=== PATIENT | female | born 1935 | race Caucasian/White ===

== ENCOUNTER 2017-12-30 13:57 | Inpatient (IN) ==
[2017-12-30] MEDS ORDERED: methylPREDNISolone SOD SUC 125 MG/2 ML VIAL IV STA (14:35)
[2017-12-30] MEDS ORDERED: SODIUM CHLORIDE 0.9% 500 ML IV STA (14:35)
[2017-12-30] MEDS ORDERED: LEVOFLOXACIN INJ 500 MG in PREMIX 1 EACH IV STA (14:50)
[2017-12-30] MEDS ORDERED: ALBUTEROL NEB SOLN 5 MG/ML 20 ML/BOTTLE RESP TX SCH (15:00)
[2017-12-30] MEDS ORDERED: methylPREDNISolone SOD SUC 125 MG/2 ML VIAL ONE (15:19)
[2017-12-30] MEDS ORDERED: LEVOFLOXACIN INJ 100 ML IV ONE (15:19)
[2017-12-30 15:21] LABS: Basophils # 0.1 10*3/uL (0.0-0.2); Basophils % 0.4 % (0.0-0.8); Eosinophils # 0.1 10*3/uL (0.0-0.87); Eosinophils % 0.9 % (0.00-10.9); Hematocrit 38.9 VOL% (35.7-47.0); Hemoglobin 12.3 GM/DL (12.0-16.0); Immature Granulocytes % 0.3 %; Immature Granulocytes Absolute 0.04 #; Lymphocytes # 2.8 10*3/uL (1.4-4.0); Lymphocytes % 21.1 % (21.3-54.2); Mean Corpuscular HGB Conc 31.6 GM/DL (32-36); Mean Corpuscular Hemoglobin 29 PG (27-34); Mean Corpuscular Volume 90.9 FL (87-102); Mean Platelet Volume 10.5 FL (9.6-12.0); Monocytes % 7.2 % (1.7-12.7); Neutrophils # 9.3 10*3/uL (1.4-7.4); Neutrophils % 70.1 % (38.7-73.9); Platelet Count 353 T/CUMM (130-400); Red Blood Count 4.28 MC/CUMM (3.8-5.5); Red Cell Distribution Width 15.3 % (9.3-17.3); White Blood Count 13.3 T/CUMM (4-12)
[2017-12-30 15:33] LABS: PT Patient Result 10.6 SECS; Partial Thromboplastin Time 29.3 SECS (0-40)
[2017-12-30 15:41] LABS: Alanine Aminotransferase 16 U/L (13-56); Alkaline Phosphatase 136 U/L (45-117); Aspartate Amino Transferase 13 U/L (0-37); Blood Urea Nitrogen 14 MG/DL (7-18); Calcium 9.1 MG/DL (8.5-10.1); Glucose 83 MG/DL (74-106); Lymphocytes 25 % (20-55); Osmolality,Calculated 278.4 MOS/KG (273-304); Platelet Estimate Adequate; Potassium 4.6 MMOL/L (3.5-5.1); Segmented Neutrophils 70 % (50-85); Sodium 140 MMOL/L (136-145); Total Cells Counted 100; Total Protein 7.2 G/DL (6.4-8.3); Troponin I Only < 0.015 NG/ML (0.00-0.045)
[2017-12-30 15:42] LABS: Burr Cells Slight; Giant Platelets Few; Hypochromasia 1+; Ovalocytes Slight
[2017-12-30] MEDS ORDERED: ACETAMINOPHEN 325 MG TABLET PO PRN (16:09)
[2017-12-30] MEDS ORDERED: LORazepam 1 MG TABLET PO PRN (16:14)
[2017-12-30] MEDS ORDERED: FUROSEMIDE 20 MG TABLET PO PRN (16:14)
[2017-12-30 17:13] LABS: Apearance,Urine CLEAR (Clear); Bilirubin,Urine Negative (Negative); Blood, Urine Negative (Negative); Glucose,Urine (UA) Negative (Negative); Ketones,Urine 5 mg/dL (Negative); Mucus,Urine Occasional /LPF (Occasional); Nitrite,Urine Negative (Negative); Protein,Urine 30 MG/DL; RBC,Urine 1 /HPF (0-4); Squamous Epithelial Cell,Urine Occasional /HPF (0-10); Urine Color Yellow (Yellow); Urine Specific Gravity 1.014 (1.001-1.035); Urine Urobilinogen < 2.0 EU/DL (0.2-1.0); WBC,Urine <1 /HPF (0-6)
[2017-12-30] MEDS ORDERED: methylPREDNISolone SOD SUC 125 MG/2 ML VIAL IV SCH (18:00)
[2017-12-30] MEDS ORDERED: guaiFENesin/CODEINE 5 ML LIQUID PO PRN (20:00)
[2017-12-30] MEDS: IPRATROPIUM 500 MCG/2.5 ML NEB RESP TX SCH ×2 (20:14→23:27)
[2017-12-30] MEDS: methylPREDNISolone SOD SUC 125 MG/2 ML VIAL IV SCH (20:47)
[2017-12-30] MEDS: MEROPENEM 1,000 MG in SODIUM CHLORIDE 0.9% 100 ML IV SCH (20:50)
[2017-12-30] MEDS: FLUTICASONE/SALMETEROL 250-50 DISKUS 14 DOSE INH SCH (20:54)
[2017-12-30] MEDS: BRIMONIDINE/TIMOLOL OPH SOLN 5 ML BOTTLE BOTH EYES SCH (20:56)
[2017-12-30] MEDS: ATORVASTATIN 20 MG TABLET PO SCH (20:56)
[2017-12-30] MEDS: CARVEDILOL 3.125 MG TABLET PO SCH (20:56)
[2017-12-31] MEDS: IPRATROPIUM 500 MCG/2.5 ML NEB RESP TX SCH ×2 (03:32→07:25)
[2017-12-31] MEDS: methylPREDNISolone SOD SUC 125 MG/2 ML VIAL IV SCH ×3 (04:46→15:25)
[2017-12-31] MEDS: ASPIRIN EC 81 MG TABLET PO SCH (08:50)
[2017-12-31] MEDS: FLUTICASONE/SALMETEROL 250-50 DISKUS 14 DOSE INH SCH ×2 (08:50→22:40)
[2017-12-31] MEDS: CARVEDILOL 3.125 MG TABLET PO SCH ×2 (08:50→22:39)
[2017-12-31] MEDS: AMIODARONE 200 MG TABLET PO SCH (08:50)
[2017-12-31] MEDS: PANTOPRAZOLE 40 MG TABLET PO SCH (08:50)
[2017-12-31] MEDS: BRIMONIDINE/TIMOLOL OPH SOLN 5 ML BOTTLE BOTH EYES SCH ×2 (08:51→22:38)
[2017-12-31] MEDS: MEROPENEM 1,000 MG in SODIUM CHLORIDE 0.9% 100 ML IV SCH ×2 (08:59→21:55)
[2017-12-31] MEDS: FUROSEMIDE 40 MG/4 ML VIAL IV SCH ×2 (08:59→15:25)
[2017-12-31 09:19] LABS: Basophils % 0.1 % (0.0-0.8); Hematocrit 37.9 VOL% (35.7-47.0); Hemoglobin 12.1 GM/DL (12.0-16.0); Immature Granulocytes % 0.6 %; Immature Granulocytes Absolute 0.08 #; Lymphocytes # 1.4 10*3/uL (1.4-4.0); Lymphocytes % 10.8 % (21.3-54.2); Mean Corpuscular HGB Conc 31.9 GM/DL (32-36); Mean Corpuscular Hemoglobin 29 PG (27-34); Mean Corpuscular Volume 89.4 FL (87-102); Mean Platelet Volume 10.4 FL (9.6-12.0); Monocytes # 0.1 10*3/uL (0.11-0.8); Monocytes % 0.4 % (1.7-12.7); Neutrophils # 11.1 10*3/uL (1.4-7.4); Neutrophils % 88.1 % (38.7-73.9); Platelet Count 373 T/CUMM (130-400); Red Blood Count 4.24 MC/CUMM (3.8-5.5); Red Cell Distribution Width 15.3 % (9.3-17.3); White Blood Count 12.6 T/CUMM (4-12)
[2017-12-31 09:28] LABS: Calcium 9.1 MG/DL (8.5-10.1); Osmolality,Calculated 288.1 MOS/KG (273-304); Potassium 4.7 MMOL/L (3.5-5.1)
[2017-12-31] MEDS ORDERED: ALBUTEROL/IPRATROPIUM 3 ML NEB RESP TX PRN (09:30)
[2017-12-31 09:36] LABS: Band Neutrophils 1 % (0-10); Giant Platelets Few; Hypochromasia 1+; Lymphocytes 17 % (20-55); Microcytosis Slight; Platelet Estimate Adequate; Segmented Neutrophils 81 % (50-85); Total Cells Counted 100
[2017-12-31] MEDS: MONTELUKAST 10 MG TABLET PO SCH (10:48)
[2017-12-31] MEDS: DICLOFENAC 1.3% PATCH 5/PACK TRANSDERM SCH ×2 (10:48→22:47)
[2017-12-31] MEDS: BENZONATATE 100 MG CAPSULE PO SCH ×3 (10:50→22:39)
[2017-12-31] MEDS: ALBUTEROL/IPRATROPIUM 3 ML NEB RESP TX SCH ×3 (10:56→19:52)
[2017-12-31] MEDS: LEVOFLOXACIN INJ 750 MG in PREMIX 1 EACH IV SCH (15:26)
[2017-12-31] MEDS: methylPREDNISolone SOD SUC 40 MG/1 ML VIAL IV SCH (22:34)
[2017-12-31] MEDS: ATORVASTATIN 20 MG TABLET PO SCH (22:39)
[2018-01-01 05:49] LABS: Basophils % 0.1 % (0.0-0.8); Hematocrit 34.6 VOL% (35.7-47.0); Hemoglobin 11.5 GM/DL (12.0-16.0); Immature Granulocytes % 1.2 %; Immature Granulocytes Absolute 0.26 #; Lymphocytes # 1.3 10*3/uL (1.4-4.0); Lymphocytes % 5.8 % (21.3-54.2); Mean Corpuscular HGB Conc 33.2 GM/DL (32-36); Mean Corpuscular Hemoglobin 29 PG (27-34); Mean Corpuscular Volume 87.4 FL (87-102); Mean Platelet Volume 10.5 FL (9.6-12.0); Monocytes # 0.3 10*3/uL (0.11-0.8); Monocytes % 1.5 % (1.7-12.7); Neutrophils # 20.4 10*3/uL (1.4-7.4); Neutrophils % 91.4 % (38.7-73.9); Platelet Count 379 T/CUMM (130-400); Red Blood Count 3.96 MC/CUMM (3.8-5.5); Red Cell Distribution Width 15.3 % (9.3-17.3); White Blood Count 22.3 T/CUMM (4-12)
[2018-01-01 06:24] LABS: Calcium 8.8 MG/DL (8.5-10.1); Osmolality,Calculated 288.1 MOS/KG (273-304); Potassium 4.3 MMOL/L (3.5-5.1)
[2018-01-01 07:13] LABS: Acanthocytes Few; Band Neutrophils 2 % (0-10); Hypochromasia 1+; Lymphocytes 5 % (20-55); Microcytosis 1+; Total Cells Counted 100
[2018-01-01 07:14] LABS: Giant Platelets Few; Ovalocytes Slight; Platelet Estimate Normal; Segmented Neutrophils 92 % (50-85)
[2018-01-01 07:28] LABS: Free T4 (Free Thyroxine) 1.42 NG/DL (0.76-1.46); Thyroid Stimulating Hormone 0.284 uIU/ml (0.358-3.74)
[2018-01-01] MEDS: ALBUTEROL/IPRATROPIUM 3 ML NEB RESP TX SCH ×4 (08:10→19:24)
[2018-01-01] MEDS ORDERED: LISINOPRIL 2.5 MG TABLET PO SCH (09:00)
[2018-01-01] MEDS: FLUTICASONE/SALMETEROL 250-50 DISKUS 14 DOSE INH SCH ×2 (09:08→21:53)
[2018-01-01] MEDS: PANTOPRAZOLE 40 MG TABLET PO SCH (09:09)
[2018-01-01] MEDS: AMIODARONE 200 MG TABLET PO SCH (09:09)
[2018-01-01] MEDS: CARVEDILOL 3.125 MG TABLET PO SCH (09:09)
[2018-01-01] MEDS: methylPREDNISolone SOD SUC 40 MG/1 ML VIAL IV SCH ×2 (09:09→21:51)
[2018-01-01] MEDS: BENZONATATE 100 MG CAPSULE PO SCH ×3 (09:09→21:53)
[2018-01-01] MEDS: ASPIRIN EC 81 MG TABLET PO SCH (09:09)
[2018-01-01] MEDS: BRIMONIDINE/TIMOLOL OPH SOLN 5 ML BOTTLE BOTH EYES SCH ×2 (09:10→21:54)
[2018-01-01] MEDS: FUROSEMIDE 40 MG/4 ML VIAL IV SCH (09:10)
[2018-01-01] MEDS: MONTELUKAST 10 MG TABLET PO SCH (09:10)
[2018-01-01] MEDS: DICLOFENAC 1.3% PATCH 5/PACK TRANSDERM SCH ×2 (09:10→21:58)
[2018-01-01] MEDS: MEROPENEM 1,000 MG in SODIUM CHLORIDE 0.9% 100 ML IV SCH ×2 (09:22→21:59)
[2018-01-01] MEDS: LEVOFLOXACIN INJ 750 MG in PREMIX 1 EACH IV SCH (10:40)
[2018-01-01] MEDS: SODIUM CHLORIDE 0.9% 1,000 ML IV SCH (13:06)
[2018-01-01] MEDS: ATORVASTATIN 20 MG TABLET PO SCH (21:53)
[2018-01-02] MEDS: SODIUM CHLORIDE 0.9% 1,000 ML IV SCH ×2 (00:11→10:08)
[2018-01-02 02:40] LABS: Basophils % 0.1 % (0.0-0.8); Hematocrit 31.8 VOL% (35.7-47.0); Hemoglobin 10.3 GM/DL (12.0-16.0); Immature Granulocytes % 1.5 %; Immature Granulocytes Absolute 0.28 #; Mean Corpuscular HGB Conc 32.4 GM/DL (32-36); Mean Corpuscular Hemoglobin 29 PG (27-34); Mean Corpuscular Volume 88.3 FL (87-102); Mean Platelet Volume 10.7 FL (9.6-12.0); Monocytes # 0.4 10*3/uL (0.11-0.8); Monocytes % 1.9 % (1.7-12.7); Neutrophils # 17.2 10*3/uL (1.4-7.4); Neutrophils % 91.5 % (38.7-73.9); Platelet Count 366 T/CUMM (130-400); Red Cell Distribution Width 15.5 % (9.3-17.3); White Blood Count 18.8 T/CUMM (4-12)
[2018-01-02 03:22] LABS: Calcium 8.4 MG/DL (8.5-10.1); Osmolality,Calculated 293.8 MOS/KG (273-304); Potassium 3.8 MMOL/L (3.5-5.1)
[2018-01-02 03:30] LABS: Band Neutrophils 1 % (0-10); Lymphocytes 2 % (20-55); Platelet Estimate Normal; Segmented Neutrophils 97 % (50-85); Total Cells Counted 100
[2018-01-02 06:24] LABS: Risk Ratio 3.11; VLDL CHOLESTEROL 16.6 MG/DL
[2018-01-02] MEDS: ALBUTEROL/IPRATROPIUM 3 ML NEB RESP TX SCH ×4 (07:32→18:59)
[2018-01-02] MEDS ORDERED: LISINOPRIL 2.5 MG TABLET PO SCH (09:00)
[2018-01-02] MEDS: BENZONATATE 100 MG CAPSULE PO SCH ×3 (10:01→20:25)
[2018-01-02] MEDS: MEROPENEM 1,000 MG in SODIUM CHLORIDE 0.9% 100 ML IV SCH ×2 (10:01→20:34)
[2018-01-02] MEDS: MONTELUKAST 10 MG TABLET PO SCH (10:02)
[2018-01-02] MEDS: AMIODARONE 200 MG TABLET PO SCH (10:02)
[2018-01-02] MEDS: ASPIRIN EC 81 MG TABLET PO SCH (10:02)
[2018-01-02] MEDS: PANTOPRAZOLE 40 MG TABLET PO SCH (10:03)
[2018-01-02] MEDS: BRIMONIDINE/TIMOLOL OPH SOLN 5 ML BOTTLE BOTH EYES SCH ×2 (10:03→20:28)
[2018-01-02] MEDS: FLUTICASONE/SALMETEROL 250-50 DISKUS 14 DOSE INH SCH ×2 (10:08→20:27)
[2018-01-02] MEDS: DICLOFENAC 1.3% PATCH 5/PACK TRANSDERM SCH ×2 (10:08→20:29)
[2018-01-02] MEDS: methylPREDNISolone SOD SUC 40 MG/1 ML VIAL IV SCH ×2 (10:09→21:07)
[2018-01-02] MEDS: LEVOFLOXACIN INJ 750 MG in PREMIX 1 EACH IV SCH (11:51)
[2018-01-02] MEDS ORDERED: CARVEDILOL 3.125 MG TABLET PO SCH (17:00)
[2018-01-02] MEDS: ATORVASTATIN 20 MG TABLET PO SCH (20:26)
[2018-01-03 04:07] LABS: Basophils % 0.1 % (0.0-0.8); Hematocrit 33.8 VOL% (35.7-47.0); Hemoglobin 10.9 GM/DL (12.0-16.0); Immature Granulocytes % 1.4 %; Immature Granulocytes Absolute 0.23 #; Lymphocytes % 6.4 % (21.3-54.2); Mean Corpuscular HGB Conc 32.2 GM/DL (32-36); Mean Corpuscular Hemoglobin 28 PG (27-34); Mean Corpuscular Volume 87.8 FL (87-102); Mean Platelet Volume 10.1 FL (9.6-12.0); Monocytes # 0.4 10*3/uL (0.11-0.8); Monocytes % 2.2 % (1.7-12.7); Neutrophils # 14.5 10*3/uL (1.4-7.4); Neutrophils % 89.9 % (38.7-73.9); Platelet Count 406 T/CUMM (130-400); Red Blood Count 3.85 MC/CUMM (3.8-5.5); Red Cell Distribution Width 15.8 % (9.3-17.3); White Blood Count 16.1 T/CUMM (4-12)
[2018-01-03 04:31] LABS: Calcium 8.6 MG/DL (8.5-10.1); Osmolality,Calculated 294.8 MOS/KG (273-304); Potassium 4.1 MMOL/L (3.5-5.1)
[2018-01-03] MEDS: ALBUTEROL/IPRATROPIUM 3 ML NEB RESP TX SCH ×4 (08:00→19:21)
[2018-01-03] MEDS: MEROPENEM 1,000 MG in SODIUM CHLORIDE 0.9% 100 ML IV SCH ×2 (09:59→20:58)
[2018-01-03] MEDS: FLUTICASONE/SALMETEROL 250-50 DISKUS 14 DOSE INH SCH ×2 (10:01→20:47)
[2018-01-03] MEDS: ASPIRIN EC 81 MG TABLET PO SCH (10:02)
[2018-01-03] MEDS: AMIODARONE 200 MG TABLET PO SCH (10:02)
[2018-01-03] MEDS: MONTELUKAST 10 MG TABLET PO SCH (10:02)
[2018-01-03] MEDS: PANTOPRAZOLE 40 MG TABLET PO SCH (10:02)
[2018-01-03] MEDS: methylPREDNISolone SOD SUC 40 MG/1 ML VIAL IV SCH ×2 (10:02→20:51)
[2018-01-03] MEDS: BENZONATATE 100 MG CAPSULE PO SCH ×3 (10:02→20:49)
[2018-01-03] MEDS: BRIMONIDINE/TIMOLOL OPH SOLN 5 ML BOTTLE BOTH EYES SCH ×2 (10:03→20:47)
[2018-01-03] MEDS: DICLOFENAC 1.3% PATCH 5/PACK TRANSDERM SCH ×2 (10:13→20:48)
[2018-01-03] MEDS: LEVOFLOXACIN INJ 750 MG in PREMIX 1 EACH IV SCH (10:44)
[2018-01-03] MEDS: ATORVASTATIN 20 MG TABLET PO SCH (20:49)
[2018-01-04] MEDS: ALBUTEROL/IPRATROPIUM 3 ML NEB RESP TX SCH (07:22)
[2018-01-04 08:19] VITALS: BP 153/67
[2018-01-04] MEDS: FLUTICASONE/SALMETEROL 250-50 DISKUS 14 DOSE INH SCH (09:15)
[2018-01-04] MEDS: DICLOFENAC 1.3% PATCH 5/PACK TRANSDERM SCH (09:16)
[2018-01-04] MEDS: LEVOFLOXACIN INJ 750 MG in PREMIX 1 EACH IV SCH (09:17)
[2018-01-04] MEDS: BRIMONIDINE/TIMOLOL OPH SOLN 5 ML BOTTLE BOTH EYES SCH (09:19)
[2018-01-04] MEDS: methylPREDNISolone SOD SUC 40 MG/1 ML VIAL IV SCH (09:20)
[2018-01-04] MEDS: ASPIRIN EC 81 MG TABLET PO SCH (09:21)
[2018-01-04] MEDS: BENZONATATE 100 MG CAPSULE PO SCH (09:21)
[2018-01-04] MEDS: AMIODARONE 200 MG TABLET PO SCH (09:21)
[2018-01-04] MEDS: MEROPENEM 1,000 MG in SODIUM CHLORIDE 0.9% 100 ML IV SCH (09:22)
[2018-01-04] MEDS: MONTELUKAST 10 MG TABLET PO SCH (09:22)
[2018-01-04] MEDS: PANTOPRAZOLE 40 MG TABLET PO SCH (09:22)
== END 2018-01-04 11:35 | disposition hospice, home (50) | DRG 193 ==
LOC: N.ED 13:57 → N.EDINP 15:45 → N.2E 19:36
PROVIDERS: ADMIT Internal Medicine; ATTEND Internal Medicine

== ENCOUNTER 2018-12-30 16:25 | Inpatient (IN) ==
[2018-12-30] MEDS ORDERED: ASPIRIN 325 MG TABLET PO STA (16:45)
[2018-12-30] MEDS ORDERED: ONDANSETRON 4 MG/2 ML VIAL IV STA (16:45)
[2018-12-30] MEDS ORDERED: methylPREDNISolone SOD SUC 125 MG/2 ML VIAL IV STA (16:45)
[2018-12-30 17:00] LABS: Basophils % 0.3 % (0.0-0.8); Eosinophils % 0.3 % (0.00-10.9); Hematocrit 29.1 VOL% (35.7-47.0); Immature Granulocytes % 0.8 %; Immature Granulocytes Absolute 0.07 #; Lymphocytes # 1.1 10*3/uL (1.4-4.0); Lymphocytes % 12.6 % (21.3-54.2); Mean Corpuscular HGB Conc 27.1 GM/DL (32-36); Mean Corpuscular Volume 79.7 FL (87-102); Mean Platelet Volume 10.6 FL (9.6-12.0); Monocytes % 4.9 % (1.7-12.7); NRBC # 0.02 10*3/uL; Neutrophils % 81.1 % (38.7-73.9); Platelet Count 174 T/CUMM (130-400); Red Blood Count 3.65 MC/CUMM (3.8-5.5); Red Cell Distribution Width 18.6 % (9.3-17.3); White Blood Count 8.8 T/CUMM (4-12)
[2018-12-30] MEDS ORDERED: ALBUTEROL 2.5 MG/3 ML NEB RESP TX SCH (17:00)
[2018-12-30 17:02] LABS: Hemoglobin 7.9 GM/DL (12.0-16.0)
[2018-12-30 17:21] LABS: Albumin 2.8 G/DL (3.4-5.0); Bilirubin,Total 0.6 MG/DL (0.2-1.0); Calcium 8.6 MG/DL (8.5-10.1); Osmolality,Calculated 281.5 MOS/KG (273-304); Total Protein 7.3 G/DL (6.4-8.3)
[2018-12-30] MEDS ORDERED: FUROSEMIDE 20 MG/2 ML VIAL IV STA (17:52)
[2018-12-30 17:56] LABS: ABG Base Excess -0.4 MMOL/L (-2.5-2.5); ABG Oxygen Saturation 88.9 % (95-100); ABG PCO2 37.7 MM HG (35-48); ABG PH 7.411 (7.35-7.45); ABG PO2 59.7 MM HG (80-95); ABG TCO2 22.4 MMOL/L (23-27); Pt O2 Delivery Device Other
[2018-12-30] MEDS: PHENYLEPHRINE DRIP 40 MG/250 ML PREMIX IV PRN (18:16)
[2018-12-30 18:23] LABS: Apearance,Urine CLEAR (Clear); Bacteria,Urine Occasional /HPF (Few); Bilirubin,Urine Negative (Negative); Blood, Urine Negative (Negative); Glucose,Urine (UA) Negative (Negative); Hyaline Casts,Urine 9 /LPF (0-3); Ketones,Urine Negative (Negative); Mucus,Urine Occasional /LPF (Occasional); Nitrite,Urine Negative (Negative); Protein,Urine 30 MG/DL; RBC,Urine 5 /HPF (0-4); Squamous Epithelial Cell,Urine Occasional /HPF (0-10); Urine Color Yellow (Yellow); Urine Specific Gravity 1.011 (1.001-1.035); Urine Urobilinogen < 2.0 EU/DL (0.2-1.0); WBC,Urine 2 /HPF (0-6)
[2018-12-30 18:30] LABS: INR 1.1; PT Patient Result 12.2 SECS
[2018-12-30] MEDS ORDERED: SODIUM CHLORIDE 0.9% 1,900 ML IV ONE (18:59)
[2018-12-30] MEDS ORDERED: PIPERACILLIN/TAZOBACTAM 2,250 MG in SODIUM CHLORIDE 0.9% 100 ML IV SCH (19:00)
[2018-12-30] MEDS ORDERED: PIPERACILLIN/TAZOBACTAM 3,375 MG in SODIUM CHLORIDE 0.9% 100 ML IV SCH (20:00)
[2018-12-30] MEDS ORDERED: PNEUMOCOCCAL VACCINE (13 VALENT) 0.5 ML SYRINGE IM ONE (20:49)
[2018-12-30] MEDS: FUROSEMIDE 20 MG/2 ML VIAL IV SCH (21:32)
[2018-12-30] MEDS: PANTOPRAZOLE 40 MG VIAL IV SCH (21:32)
[2018-12-30] MEDS: ATORVASTATIN 20 MG TABLET PO SCH (21:32)
[2018-12-30] MEDS: ENOXAPARIN 30 MG/0.3 ML SYRINGE SUBCUT SCH (21:34)
[2018-12-30] MEDS: CLINDAMYCIN INJ 300 MG in PREMIX 1 EACH IV SCH (22:47)
[2018-12-30] MEDS: PIPERACILLIN/TAZOBACTAM 3,375 MG in SODIUM CHLORIDE 0.9% 100 ML IV SCH (23:17)
[2018-12-31 02:47] LABS: Hematocrit 27.8 VOL% (35.7-47.0); Hemoglobin 7.7 GM/DL (12.0-16.0); Immature Granulocytes % 0.6 %; Immature Granulocytes Absolute 0.05 #; Lymphocytes # 0.7 10*3/uL (1.4-4.0); Lymphocytes % 8.1 % (21.3-54.2); Mean Corpuscular HGB Conc 27.7 GM/DL (32-36); Mean Corpuscular Volume 77.4 FL (87-102); Mean Platelet Volume 10.5 FL (9.6-12.0); Monocytes % 0.9 % (1.7-12.7); Neutrophils % 90.4 % (38.7-73.9); Platelet Count 414 T/CUMM (130-400); Red Blood Count 3.59 MC/CUMM (3.8-5.5); Red Cell Distribution Width 18.6 % (9.3-17.3); White Blood Count 8.7 T/CUMM (4-12)
[2018-12-31 03:13] LABS: Calcium 7.8 MG/DL (8.5-10.1); Osmolality,Calculated 288.1 MOS/KG (273-304)
[2018-12-31 03:22] LABS: Albumin 2.7 G/DL (3.4-5.0); Bilirubin,Total 0.7 MG/DL (0.2-1.0); Calcium 7.9 MG/DL (8.5-10.1); Osmolality,Calculated 287.1 MOS/KG (273-304); Total Protein 6.9 G/DL (6.4-8.3)
[2018-12-31] MEDS: CLINDAMYCIN INJ 300 MG in PREMIX 1 EACH IV SCH ×3 (04:33→21:22)
[2018-12-31] MEDS: ONDANSETRON 4 MG/2 ML VIAL IV PRN (05:39)
[2018-12-31] MEDS: PHENYLEPHRINE DRIP 40 MG/250 ML PREMIX IV PRN (07:53)
[2018-12-31] MEDS: PIPERACILLIN/TAZOBACTAM 3,375 MG in SODIUM CHLORIDE 0.9% 100 ML IV SCH ×2 (08:50→21:58)
[2018-12-31] MEDS: FUROSEMIDE 20 MG/2 ML VIAL IV SCH ×2 (08:51→21:09)
[2018-12-31] MEDS: AMIODARONE 200 MG TABLET PO SCH (09:00)
[2018-12-31] MEDS: ALBUTEROL 2.5 MG/3 ML NEB RESP TX PRN (09:01)
[2018-12-31] MEDS: PANTOPRAZOLE 40 MG VIAL IV SCH (18:54)
[2018-12-31] MEDS: ATORVASTATIN 20 MG TABLET PO SCH (21:09)
[2018-12-31] MEDS: ENOXAPARIN 30 MG/0.3 ML SYRINGE SUBCUT SCH (21:24)
[2019-01-01] MEDS ORDERED: ZALEPLON 5 MG CAPSULE PO ONE (00:01)
[2019-01-01] MEDS: CLINDAMYCIN INJ 300 MG in PREMIX 1 EACH IV SCH ×3 (05:09→22:34)
[2019-01-01] MEDS ORDERED: MORPHINE 4 MG/1 ML VIAL IV PRN (06:10)
[2019-01-01 06:32] LABS: Basophils % 0.1 % (0.0-0.8); Hematocrit 24.9 VOL% (35.7-47.0); Hemoglobin 7.2 GM/DL (12.0-16.0); Immature Granulocytes % 0.4 %; Immature Granulocytes Absolute 0.07 #; Lymphocytes # 1.9 10*3/uL (1.4-4.0); Lymphocytes % 11.5 % (21.3-54.2); Mean Corpuscular HGB Conc 28.9 GM/DL (32-36); Mean Corpuscular Volume 74.8 FL (87-102); Mean Platelet Volume 11.4 FL (9.6-12.0); Monocytes % 8.6 % (1.7-12.7); NRBC # 0.06 10*3/uL; Neutrophils % 79.4 % (38.7-73.9); Platelet Count 441 T/CUMM (130-400); Red Blood Count 3.33 MC/CUMM (3.8-5.5); Red Cell Distribution Width 18.3 % (9.3-17.3); White Blood Count 16.7 T/CUMM (4-12)
[2019-01-01 06:33] LABS: Calcium 8.3 MG/DL (8.5-10.1); Osmolality,Calculated 285.3 MOS/KG (273-304)
[2019-01-01 07:45] LABS: Hypochromasia 2+; Microcytosis 2+; Ovalocytes Few; Polychromasia Slight; Target Cells Few
[2019-01-01 07:46] LABS: Burr Cells Slight; Elliptocytes Few; Platelet Estimate Increased; Tear Drop Cells Few
[2019-01-01] MEDS ORDERED: POTASSIUM CHLORIDE 20 MEQ TABLET PO ONE (08:52)
[2019-01-01] MEDS ORDERED: PNEUMOCOCCAL VACCINE (13 VALENT) 0.5 ML SYRINGE IM ONE (09:00)
[2019-01-01] MEDS: PIPERACILLIN/TAZOBACTAM 3,375 MG in SODIUM CHLORIDE 0.9% 100 ML IV SCH ×2 (10:29→20:51)
[2019-01-01] MEDS: AMIODARONE 200 MG TABLET PO SCH (10:29)
[2019-01-01] MEDS: FUROSEMIDE 20 MG/2 ML VIAL IV SCH ×3 (10:29→20:52)
[2019-01-01] MEDS: ISOSORBIDE MONONITRATE 30 MG TABLET PO SCH (15:32)
[2019-01-01] MEDS: metOLazone 5 MG TABLET PO SCH (15:32)
[2019-01-01] MEDS: ASPIRIN EC 81 MG TABLET PO SCH (15:32)
[2019-01-01] MEDS: ALBUMIN 25% 25 GM in PREMIX 1 EACH IV SCH (19:57)
[2019-01-01] MEDS: ENOXAPARIN 30 MG/0.3 ML SYRINGE SUBCUT SCH (20:51)
[2019-01-01] MEDS: BRIMONIDINE/TIMOLOL OPH SOLN 5 ML BOTTLE BOTH EYES SCH (20:52)
[2019-01-01] MEDS: ATORVASTATIN 20 MG TABLET PO SCH (20:52)
[2019-01-01] MEDS: DOCUSATE SODIUM 100 MG CAPSULE PO SCH (20:52)
[2019-01-01] MEDS: LORazepam 1 MG TABLET PO PRN (22:04)
[2019-01-01] MEDS ORDERED: SODIUM CHLORIDE 0.9% 250 ML IV SCH (23:00)
[2019-01-01] MEDS ORDERED: PHENYLEPHRINE DRIP 40 MG/250 ML PREMIX IV ONE (23:18)
[2019-01-01] MEDS: PHENYLEPHRINE DRIP 40 MG/250 ML PREMIX IV PRN (23:24)
[2019-01-01] MEDS: ONDANSETRON 4 MG/2 ML VIAL IV PRN (23:47)
[2019-01-02] MEDS ORDERED: SODIUM CHLORIDE 0.9% 250 ML IV SCH (01:00)
[2019-01-02 01:42] LABS: Basophils % 0.3 % (0.0-0.8); Eosinophils % 0.2 % (0.00-10.9); Hematocrit 23.7 VOL% (35.7-47.0); Hemoglobin 6.6 GM/DL (12.0-16.0); Immature Granulocytes % 0.4 %; Immature Granulocytes Absolute 0.05 #; Lymphocytes # 1.7 10*3/uL (1.4-4.0); Lymphocytes % 14.8 % (21.3-54.2); Mean Corpuscular HGB Conc 27.8 GM/DL (32-36); Mean Corpuscular Volume 77.7 FL (87-102); Mean Platelet Volume 10.8 FL (9.6-12.0); Monocytes % 9.6 % (1.7-12.7); NRBC # 0.06 10*3/uL; Neutrophils % 74.7 % (38.7-73.9); Platelet Count 416 T/CUMM (130-400); Red Blood Count 3.05 MC/CUMM (3.8-5.5); Red Cell Distribution Width 18.4 % (9.3-17.3); White Blood Count 11.7 T/CUMM (4-12)
[2019-01-02 01:44] LABS: Calcium 7.4 MG/DL (8.5-10.1); Osmolality,Calculated 290.1 MOS/KG (273-304)
[2019-01-02] MEDS: CLINDAMYCIN INJ 300 MG in PREMIX 1 EACH IV SCH ×3 (05:00→21:00)
[2019-01-02 05:12] LABS: Basophils % 0.2 % (0.0-0.8); Eosinophils % 0.3 % (0.00-10.9); Hemoglobin 6.7 GM/DL (12.0-16.0); Immature Granulocytes % 0.3 %; Immature Granulocytes Absolute 0.04 #; Lymphocytes % 16.2 % (21.3-54.2); Mean Corpuscular HGB Conc 29.1 GM/DL (32-36); Mean Corpuscular Volume 74.4 FL (87-102); Mean Platelet Volume 10.8 FL (9.6-12.0); Monocytes % 13.5 % (1.7-12.7); NRBC # 0.09 10*3/uL; Neutrophils % 69.5 % (38.7-73.9); Platelet Count 469 T/CUMM (130-400); Red Blood Count 3.09 MC/CUMM (3.8-5.5); Red Cell Distribution Width 18.2 % (9.3-17.3); White Blood Count 12.2 T/CUMM (4-12)
[2019-01-02 05:36] LABS: Calcium 7.8 MG/DL (8.5-10.1)
[2019-01-02 05:41] LABS: Risk Ratio 2.41; VLDL CHOLESTEROL 17.2 MG/DL
[2019-01-02] MEDS: ALBUMIN 25% 25 GM in PREMIX 1 EACH IV SCH ×2 (08:25→19:31)
[2019-01-02] MEDS: PHENYLEPHRINE DRIP 40 MG/250 ML PREMIX IV PRN (08:53)
[2019-01-02] MEDS: DOCUSATE SODIUM 100 MG CAPSULE PO SCH ×2 (09:45→20:33)
[2019-01-02] MEDS: ASPIRIN EC 81 MG TABLET PO SCH (09:45)
[2019-01-02] MEDS: ISOSORBIDE MONONITRATE 30 MG TABLET PO SCH (09:46)
[2019-01-02] MEDS: BRIMONIDINE/TIMOLOL OPH SOLN 5 ML BOTTLE BOTH EYES SCH ×2 (09:46→21:47)
[2019-01-02] MEDS: AMIODARONE 200 MG TABLET PO SCH (09:46)
[2019-01-02] MEDS: metOLazone 5 MG TABLET PO SCH (09:47)
[2019-01-02] MEDS: POTASSIUM CHLORIDE 20 MEQ TABLET PO SCH (09:47)
[2019-01-02] MEDS: PANTOPRAZOLE 40 MG TABLET PO SCH (09:47)
[2019-01-02] MEDS: SERTRALINE 25 MG TABLET PO SCH (09:47)
[2019-01-02] MEDS: FUROSEMIDE 20 MG/2 ML VIAL IV SCH ×2 (09:47→20:31)
[2019-01-02] MEDS: PIPERACILLIN/TAZOBACTAM 3,375 MG in SODIUM CHLORIDE 0.9% 100 ML IV SCH ×2 (09:48→20:32)
[2019-01-02] MEDS ORDERED: SODIUM CHLORIDE 0.9% 1,000 ML IV PRN (10:46)
[2019-01-02] MEDS: ATORVASTATIN 20 MG TABLET PO SCH (20:32)
[2019-01-02] MEDS: ENOXAPARIN 30 MG/0.3 ML SYRINGE SUBCUT SCH (20:32)
[2019-01-02] MEDS: SENNA 8.6 MG TABLET PO SCH (20:32)
[2019-01-03] MEDS: PHENYLEPHRINE DRIP 40 MG/250 ML PREMIX IV PRN ×2 (04:26→23:55)
[2019-01-03] MEDS: CLINDAMYCIN INJ 300 MG in PREMIX 1 EACH IV SCH ×3 (05:00→21:28)
[2019-01-03 05:40] LABS: Basophils % 0.2 % (0.0-0.8); Eosinophils # 0.1 10*3/uL (0.0-0.87); Eosinophils % 1.1 % (0.00-10.9); Hematocrit 34.7 VOL% (35.7-47.0); Hemoglobin 10.7 GM/DL (12.0-16.0); Immature Granulocytes % 0.4 %; Immature Granulocytes Absolute 0.05 #; Lymphocytes # 1.5 10*3/uL (1.4-4.0); Lymphocytes % 12.3 % (21.3-54.2); Mean Corpuscular HGB Conc 30.8 GM/DL (32-36); Mean Corpuscular Volume 77.5 FL (87-102); Mean Platelet Volume 10.5 FL (9.6-12.0); Monocytes % 10.8 % (1.7-12.7); NRBC # 0.14 10*3/uL; Neutrophils % 75.2 % (38.7-73.9); Platelet Count 422 T/CUMM (130-400); Red Blood Count 4.48 MC/CUMM (3.8-5.5); Red Cell Distribution Width 19.3 % (9.3-17.3)
[2019-01-03 06:14] LABS: Calcium 8.9 MG/DL (8.5-10.1); Osmolality,Calculated 278.7 MOS/KG (273-304)
[2019-01-03] MEDS: ALBUMIN 25% 25 GM in PREMIX 1 EACH IV SCH (09:27)
[2019-01-03] MEDS: AMIODARONE 200 MG TABLET PO SCH (09:28)
[2019-01-03] MEDS: PANTOPRAZOLE 40 MG TABLET PO SCH (09:28)
[2019-01-03] MEDS: SENNA 8.6 MG TABLET PO SCH ×2 (09:28→21:27)
[2019-01-03] MEDS: POTASSIUM CHLORIDE 20 MEQ TABLET PO SCH (09:29)
[2019-01-03] MEDS: DOCUSATE SODIUM 100 MG CAPSULE PO SCH ×2 (09:29→21:27)
[2019-01-03] MEDS: FUROSEMIDE 20 MG/2 ML VIAL IV SCH ×2 (09:29→21:27)
[2019-01-03] MEDS: metOLazone 5 MG TABLET PO SCH (09:29)
[2019-01-03] MEDS: SERTRALINE 25 MG TABLET PO SCH (09:29)
[2019-01-03] MEDS: ASPIRIN EC 81 MG TABLET PO SCH (09:29)
[2019-01-03] MEDS: BRIMONIDINE/TIMOLOL OPH SOLN 5 ML BOTTLE BOTH EYES SCH ×2 (09:51→21:27)
[2019-01-03] MEDS: PIPERACILLIN/TAZOBACTAM 3,375 MG in SODIUM CHLORIDE 0.9% 100 ML IV SCH ×2 (09:54→21:28)
[2019-01-03] MEDS: LORazepam 1 MG TABLET PO PRN (15:32)
[2019-01-03] MEDS: ATORVASTATIN 20 MG TABLET PO SCH (21:27)
[2019-01-03] MEDS: ENOXAPARIN 30 MG/0.3 ML SYRINGE SUBCUT SCH (21:32)
[2019-01-04] MEDS: CLINDAMYCIN INJ 300 MG in PREMIX 1 EACH IV SCH (05:30)
[2019-01-04 06:07] LABS: Basophils # 0.1 10*3/uL (0.0-0.2); Basophils % 0.4 % (0.0-0.8); Eosinophils # 0.2 10*3/uL (0.0-0.87); Eosinophils % 1.4 % (0.00-10.9); Hematocrit 41.1 VOL% (35.7-47.0); Hemoglobin 12.6 GM/DL (12.0-16.0); Immature Granulocytes % 0.5 %; Immature Granulocytes Absolute 0.06 #; Lymphocytes # 1.6 10*3/uL (1.4-4.0); Lymphocytes % 11.7 % (21.3-54.2); Mean Corpuscular HGB Conc 30.7 GM/DL (32-36); Mean Platelet Volume 10.6 FL (9.6-12.0); Monocytes % 13.4 % (1.7-12.7); NRBC # 0.13 10*3/uL; Neutrophils % 72.6 % (38.7-73.9); Platelet Count 452 T/CUMM (130-400); Red Blood Count 5.27 MC/CUMM (3.8-5.5); Red Cell Distribution Width 20.5 % (9.3-17.3); White Blood Count 13.3 T/CUMM (4-12)
[2019-01-04 06:36] LABS: Osmolality,Calculated 275.8 MOS/KG (273-304)
[2019-01-04] MEDS ORDERED: FUROSEMIDE 20 MG/2 ML VIAL IV SCH (08:11)
[2019-01-04] MEDS: PANTOPRAZOLE 40 MG TABLET PO SCH (09:57)
[2019-01-04] MEDS: DOCUSATE SODIUM 100 MG CAPSULE PO SCH ×2 (09:57→20:03)
[2019-01-04] MEDS: SERTRALINE 25 MG TABLET PO SCH (09:58)
[2019-01-04] MEDS: POTASSIUM CHLORIDE 20 MEQ TABLET PO SCH ×5 (09:58→20:03)
[2019-01-04] MEDS: LEVOFLOXACIN 750 MG TABLET PO SCH (09:58)
[2019-01-04] MEDS: SENNA 8.6 MG TABLET PO SCH ×2 (09:59→20:03)
[2019-01-04] MEDS: metOLazone 5 MG TABLET PO SCH (09:59)
[2019-01-04] MEDS: ASPIRIN EC 81 MG TABLET PO SCH (09:59)
[2019-01-04] MEDS: FUROSEMIDE 20 MG/2 ML VIAL IV SCH (09:59)
[2019-01-04] MEDS: MEROPENEM 500 MG in SODIUM CHLORIDE 0.9% 100 ML IV SCH ×2 (10:10→13:41)
[2019-01-04] MEDS: BRIMONIDINE/TIMOLOL OPH SOLN 5 ML BOTTLE BOTH EYES SCH ×2 (10:11→20:04)
[2019-01-04] MEDS: AMIODARONE 200 MG TABLET PO SCH (10:12)
[2019-01-04] MEDS: PHENYLEPHRINE DRIP 40 MG/250 ML PREMIX IV PRN ×2 (16:48→23:03)
[2019-01-04] MEDS: ATORVASTATIN 20 MG TABLET PO SCH (20:02)
[2019-01-04] MEDS: ENOXAPARIN 30 MG/0.3 ML SYRINGE SUBCUT SCH (20:04)
[2019-01-05] MEDS: MEROPENEM 500 MG in SODIUM CHLORIDE 0.9% 100 ML IV SCH ×2 (03:19→14:29)
[2019-01-05 04:50] LABS: Calcium 8.7 MG/DL (8.5-10.1); Osmolality,Calculated 277.7 MOS/KG (273-304)
[2019-01-05 04:51] LABS: Basophils # 0.1 10*3/uL (0.0-0.2); Basophils % 0.3 % (0.0-0.8); Eosinophils # 0.6 10*3/uL (0.0-0.87); Eosinophils % 3.4 % (0.00-10.9); Hematocrit 39.6 VOL% (35.7-47.0); Hemoglobin 11.9 GM/DL (12.0-16.0); Immature Granulocytes % 0.6 %; Lymphocytes # 1.9 10*3/uL (1.4-4.0); Mean Corpuscular HGB Conc 30.1 GM/DL (32-36); Mean Platelet Volume 11.2 FL (9.6-12.0); Monocytes % 13.8 % (1.7-12.7); NRBC # 0.22 10*3/uL; Neutrophils % 69.9 % (38.7-73.9); Platelet Count 516 T/CUMM (130-400); Red Blood Count 5.08 MC/CUMM (3.8-5.5)
[2019-01-05] MEDS: PHENYLEPHRINE DRIP 40 MG/250 ML PREMIX IV PRN ×4 (06:39→22:51)
[2019-01-05] MEDS: SERTRALINE 25 MG TABLET PO SCH (08:48)
[2019-01-05] MEDS: POTASSIUM CHLORIDE 20 MEQ TABLET PO SCH (08:48)
[2019-01-05] MEDS: FUROSEMIDE 20 MG/2 ML VIAL IV SCH (08:48)
[2019-01-05] MEDS: PANTOPRAZOLE 40 MG TABLET PO SCH (08:48)
[2019-01-05] MEDS: DOCUSATE SODIUM 100 MG CAPSULE PO SCH ×2 (08:48→21:51)
[2019-01-05] MEDS: ASPIRIN EC 81 MG TABLET PO SCH (08:48)
[2019-01-05] MEDS: SENNA 8.6 MG TABLET PO SCH ×2 (08:48→21:51)
[2019-01-05] MEDS: metOLazone 5 MG TABLET PO SCH (08:48)
[2019-01-05] MEDS: AMIODARONE 200 MG TABLET PO SCH (09:31)
[2019-01-05] MEDS: BRIMONIDINE/TIMOLOL OPH SOLN 5 ML BOTTLE BOTH EYES SCH ×2 (11:18→21:52)
[2019-01-05] MEDS: ATORVASTATIN 20 MG TABLET PO SCH (21:51)
[2019-01-05] MEDS: ENOXAPARIN 30 MG/0.3 ML SYRINGE SUBCUT SCH (21:51)
[2019-01-06] MEDS: MEROPENEM 500 MG in SODIUM CHLORIDE 0.9% 100 ML IV SCH ×2 (03:00→14:40)
[2019-01-06] MEDS: PHENYLEPHRINE DRIP 40 MG/250 ML PREMIX IV PRN ×4 (04:00→22:03)
[2019-01-06 06:41] LABS: Calcium 8.7 MG/DL (8.5-10.1)
[2019-01-06] MEDS: metOLazone 5 MG TABLET PO SCH (09:31)
[2019-01-06] MEDS: SERTRALINE 25 MG TABLET PO SCH (09:31)
[2019-01-06] MEDS: AMIODARONE 200 MG TABLET PO SCH (09:35)
[2019-01-06] MEDS: LEVOFLOXACIN 750 MG TABLET PO SCH (09:36)
[2019-01-06] MEDS: DOCUSATE SODIUM 100 MG CAPSULE PO SCH ×2 (09:36→22:02)
[2019-01-06] MEDS: POTASSIUM CHLORIDE 20 MEQ TABLET PO SCH (09:36)
[2019-01-06] MEDS: BRIMONIDINE/TIMOLOL OPH SOLN 5 ML BOTTLE BOTH EYES SCH ×2 (09:36→22:04)
[2019-01-06] MEDS: PANTOPRAZOLE 40 MG TABLET PO SCH (09:37)
[2019-01-06] MEDS: SENNA 8.6 MG TABLET PO SCH ×2 (09:37→22:03)
[2019-01-06] MEDS: FUROSEMIDE 20 MG/2 ML VIAL IV SCH (09:37)
[2019-01-06] MEDS: ASPIRIN EC 81 MG TABLET PO SCH (09:37)
[2019-01-06] MEDS: ENOXAPARIN 30 MG/0.3 ML SYRINGE SUBCUT SCH (22:03)
[2019-01-06] MEDS: ATORVASTATIN 20 MG TABLET PO SCH (22:03)
[2019-01-07] MEDS: PHENYLEPHRINE DRIP 40 MG/250 ML PREMIX IV PRN ×2 (01:53→06:40)
[2019-01-07] MEDS: MEROPENEM 500 MG in SODIUM CHLORIDE 0.9% 100 ML IV SCH ×2 (01:59→14:56)
[2019-01-07 06:29] LABS: Osmolality,Calculated 282.5 MOS/KG (273-304)
[2019-01-07] MEDS: SERTRALINE 25 MG TABLET PO SCH (08:48)
[2019-01-07] MEDS: ASPIRIN EC 81 MG TABLET PO SCH (08:48)
[2019-01-07] MEDS: PANTOPRAZOLE 40 MG TABLET PO SCH (08:48)
[2019-01-07] MEDS: BRIMONIDINE/TIMOLOL OPH SOLN 5 ML BOTTLE BOTH EYES SCH ×2 (08:49→21:35)
[2019-01-07] MEDS: SENNA 8.6 MG TABLET PO SCH ×2 (08:49→21:35)
[2019-01-07] MEDS: AMIODARONE 200 MG TABLET PO SCH (08:49)
[2019-01-07] MEDS: DOCUSATE SODIUM 100 MG CAPSULE PO SCH ×3 (08:49→21:35)
[2019-01-07] MEDS: POTASSIUM CHLORIDE 20 MEQ TABLET PO SCH (08:49)
[2019-01-07] MEDS ORDERED: SODIUM CHLORIDE 0.9% 1,000 ML IV ONE (17:30)
[2019-01-07] MEDS: ATORVASTATIN 20 MG TABLET PO SCH (21:34)
[2019-01-07] MEDS: ENOXAPARIN 30 MG/0.3 ML SYRINGE SUBCUT SCH (21:35)
[2019-01-08] MEDS: PHENYLEPHRINE DRIP 40 MG/250 ML PREMIX IV PRN ×6 (01:27→20:32)
[2019-01-08] MEDS: MEROPENEM 500 MG in SODIUM CHLORIDE 0.9% 100 ML IV SCH ×2 (02:58→14:57)
[2019-01-08] MEDS: LORazepam 1 MG TABLET PO PRN (03:30)
[2019-01-08] MEDS: ONDANSETRON 4 MG/2 ML VIAL IV PRN (04:35)
[2019-01-08 07:05] LABS: Calcium 9.1 MG/DL (8.5-10.1); Osmolality,Calculated 282.5 MOS/KG (273-304)
[2019-01-08] MEDS ORDERED: FUROSEMIDE 20 MG TABLET PO SCH (09:00)
[2019-01-08] MEDS: ASPIRIN EC 81 MG TABLET PO SCH (09:45)
[2019-01-08] MEDS: POTASSIUM CHLORIDE 20 MEQ TABLET PO SCH (09:47)
[2019-01-08] MEDS: LEVOFLOXACIN 750 MG TABLET PO SCH (09:47)
[2019-01-08] MEDS: SERTRALINE 25 MG TABLET PO SCH (09:47)
[2019-01-08] MEDS: DOCUSATE SODIUM 100 MG CAPSULE PO SCH ×2 (09:47→20:08)
[2019-01-08] MEDS: PANTOPRAZOLE 40 MG TABLET PO SCH (09:48)
[2019-01-08] MEDS: FUROSEMIDE 40 MG/4 ML VIAL IV SCH (09:48)
[2019-01-08] MEDS: BRIMONIDINE/TIMOLOL OPH SOLN 5 ML BOTTLE BOTH EYES SCH ×2 (09:48→20:09)
[2019-01-08] MEDS: SENNA 8.6 MG TABLET PO SCH ×2 (09:48→20:08)
[2019-01-08] MEDS: AMIODARONE 200 MG TABLET PO SCH (09:48)
[2019-01-08] MEDS: ATORVASTATIN 20 MG TABLET PO SCH (20:08)
[2019-01-08] MEDS: ENOXAPARIN 30 MG/0.3 ML SYRINGE SUBCUT SCH (20:09)
[2019-01-09] MEDS: MEROPENEM 500 MG in SODIUM CHLORIDE 0.9% 100 ML IV SCH ×2 (01:54→14:54)
[2019-01-09] MEDS: PHENYLEPHRINE DRIP 40 MG/250 ML PREMIX IV PRN ×2 (01:55→13:53)
[2019-01-09 06:43] LABS: Calcium 8.6 MG/DL (8.5-10.1); Osmolality,Calculated 279.7 MOS/KG (273-304)
[2019-01-09] MEDS: PANTOPRAZOLE 40 MG TABLET PO SCH (09:48)
[2019-01-09] MEDS: SERTRALINE 25 MG TABLET PO SCH (09:48)
[2019-01-09] MEDS: SENNA 8.6 MG TABLET PO SCH ×2 (09:48→21:10)
[2019-01-09] MEDS: AMIODARONE 200 MG TABLET PO SCH (09:48)
[2019-01-09] MEDS: DOCUSATE SODIUM 100 MG CAPSULE PO SCH ×2 (09:48→21:10)
[2019-01-09] MEDS: POTASSIUM CHLORIDE 20 MEQ TABLET PO SCH (09:48)
[2019-01-09] MEDS: ASPIRIN EC 81 MG TABLET PO SCH (09:48)
[2019-01-09] MEDS: FUROSEMIDE 40 MG/4 ML VIAL IV SCH (09:58)
[2019-01-09] MEDS: BRIMONIDINE/TIMOLOL OPH SOLN 5 ML BOTTLE BOTH EYES SCH ×2 (10:01→21:10)
[2019-01-09] MEDS: DIGOXIN 0.25 MG TABLET PO SCH ×2 (13:24→19:02)
[2019-01-09] MEDS: MIDODRINE 5 MG TABLET PO SCH ×2 (16:27→21:10)
[2019-01-09] MEDS: ATORVASTATIN 20 MG TABLET PO SCH (21:10)
[2019-01-09] MEDS: ENOXAPARIN 30 MG/0.3 ML SYRINGE SUBCUT SCH (21:10)
[2019-01-10] MEDS: MEROPENEM 500 MG in SODIUM CHLORIDE 0.9% 100 ML IV SCH ×2 (01:32→13:43)
[2019-01-10] MEDS: PHENYLEPHRINE DRIP 40 MG/250 ML PREMIX IV PRN ×2 (02:34→16:22)
[2019-01-10 04:33] LABS: Calcium 8.8 MG/DL (8.5-10.1); Osmolality,Calculated 287.1 MOS/KG (273-304)
[2019-01-10] MEDS ORDERED: FUROSEMIDE 20 MG TABLET PO SCH (09:00)
[2019-01-10] MEDS: SERTRALINE 25 MG TABLET PO SCH (09:34)
[2019-01-10] MEDS: POTASSIUM CHLORIDE 20 MEQ TABLET PO SCH (09:34)
[2019-01-10] MEDS: ASPIRIN EC 81 MG TABLET PO SCH (09:34)
[2019-01-10] MEDS: PANTOPRAZOLE 40 MG TABLET PO SCH (09:34)
[2019-01-10] MEDS: MIDODRINE 5 MG TABLET PO SCH ×3 (09:34→20:04)
[2019-01-10] MEDS: BRIMONIDINE/TIMOLOL OPH SOLN 5 ML BOTTLE BOTH EYES SCH ×2 (09:34→20:05)
[2019-01-10] MEDS: DOCUSATE SODIUM 100 MG CAPSULE PO SCH ×2 (09:34→20:10)
[2019-01-10] MEDS: LEVOFLOXACIN 750 MG TABLET PO SCH (09:34)
[2019-01-10] MEDS: SENNA 8.6 MG TABLET PO SCH ×2 (09:35→20:10)
[2019-01-10] MEDS ORDERED: SODIUM CHLORIDE 0.9% 1,000 ML IV SCH (12:30)
[2019-01-10] MEDS: DIGOXIN 0.125 MG TABLET PO SCH (13:58)
[2019-01-10] MEDS: ATORVASTATIN 20 MG TABLET PO SCH (20:04)
[2019-01-10] MEDS: ENOXAPARIN 40 MG/0.4 ML SYRINGE SUBCUT SCH (20:05)
[2019-01-11] MEDS: MEROPENEM 500 MG in SODIUM CHLORIDE 0.9% 100 ML IV SCH ×2 (01:10→14:23)
[2019-01-11 05:10] LABS: Basophils # 0.1 10*3/uL (0.0-0.2); Basophils % 0.4 % (0.0-0.8); Calcium 8.5 MG/DL (8.5-10.1); Eosinophils # 0.5 10*3/uL (0.0-0.87); Eosinophils % 3.7 % (0.00-10.9); Hematocrit 35.8 VOL% (35.7-47.0); Hemoglobin 10.4 GM/DL (12.0-16.0); Immature Granulocytes % 0.6 %; Immature Granulocytes Absolute 0.08 #; Lymphocytes # 2.1 10*3/uL (1.4-4.0); Lymphocytes % 16.3 % (21.3-54.2); Mean Corpuscular HGB Conc 29.1 GM/DL (32-36); Mean Corpuscular Volume 81.7 FL (87-102); Mean Platelet Volume 10.9 FL (9.6-12.0); Monocytes % 10.4 % (1.7-12.7); Neutrophils % 68.6 % (38.7-73.9); Osmolality,Calculated 284.3 MOS/KG (273-304); Platelet Count 423 T/CUMM (130-400); Red Blood Count 4.38 MC/CUMM (3.8-5.5); Red Cell Distribution Width 22.1 % (9.3-17.3); White Blood Count 13.1 T/CUMM (4-12)
[2019-01-11 05:54] LABS: Elliptocytes Few; Hypochromasia Slight; Platelet Estimate Normal
[2019-01-11] MEDS: PHENYLEPHRINE DRIP 40 MG/250 ML PREMIX IV PRN ×2 (06:28→17:30)
[2019-01-11] MEDS: MIDODRINE 5 MG TABLET PO SCH (09:03)
[2019-01-11] MEDS: ASPIRIN EC 81 MG TABLET PO SCH (09:03)
[2019-01-11] MEDS: SERTRALINE 25 MG TABLET PO SCH (09:04)
[2019-01-11] MEDS: PANTOPRAZOLE 40 MG TABLET PO SCH (09:04)
[2019-01-11] MEDS: BRIMONIDINE/TIMOLOL OPH SOLN 5 ML BOTTLE BOTH EYES SCH ×2 (09:04→21:18)
[2019-01-11] MEDS: DOCUSATE SODIUM 100 MG CAPSULE PO SCH ×3 (09:04→21:23)
[2019-01-11] MEDS: POTASSIUM CHLORIDE 20 MEQ TABLET PO SCH (09:04)
[2019-01-11] MEDS: SENNA 8.6 MG TABLET PO SCH ×3 (09:05→21:24)
[2019-01-11] MEDS ORDERED: HYDROCORTISONE 100 MG VIAL IV ONE (13:25)
[2019-01-11] MEDS ORDERED: FLUDROCORTISONE 0.1 MG TABLET PO ONE (13:30)
[2019-01-11] MEDS: SODIUM CHLORIDE 0.9% 1,000 ML IV SCH (14:10)
[2019-01-11] MEDS: DIGOXIN 0.125 MG TABLET PO SCH (14:48)
[2019-01-11] MEDS: NYSTATIN 500,000 UNIT/5 ML UDCUP SWISH/SWAL SCH ×3 (18:35→21:23)
[2019-01-11] MEDS: ENOXAPARIN 40 MG/0.4 ML SYRINGE SUBCUT SCH (21:17)
[2019-01-11] MEDS: ATORVASTATIN 20 MG TABLET PO SCH (21:18)
[2019-01-12] MEDS: MEROPENEM 500 MG in SODIUM CHLORIDE 0.9% 100 ML IV SCH (02:04)
[2019-01-12 04:49] LABS: Calcium 8.6 MG/DL (8.5-10.1)
[2019-01-12] MEDS: SODIUM CHLORIDE 0.9% 1,000 ML IV SCH ×2 (05:06→18:41)
[2019-01-12 05:11] LABS: Basophils % 0.2 % (0.0-0.8); Hematocrit 36.4 VOL% (35.7-47.0); Hemoglobin 10.8 GM/DL (12.0-16.0); Immature Granulocytes % 0.5 %; Immature Granulocytes Absolute 0.08 #; Lymphocytes # 1.5 10*3/uL (1.4-4.0); Mean Corpuscular HGB Conc 29.7 GM/DL (32-36); Mean Corpuscular Volume 80.7 FL (87-102); Mean Platelet Volume 11.1 FL (9.6-12.0); Monocytes % 3.4 % (1.7-12.7); Neutrophils % 85.9 % (38.7-73.9); Platelet Count 478 T/CUMM (130-400); Red Blood Count 4.51 MC/CUMM (3.8-5.5); Red Cell Distribution Width 22.1 % (9.3-17.3); White Blood Count 14.6 T/CUMM (4-12)
[2019-01-12] MEDS ORDERED: LEVOFLOXACIN 750 MG TABLET PO SCH (09:00)
[2019-01-12] MEDS: NYSTATIN 500,000 UNIT/5 ML UDCUP SWISH/SWAL SCH ×4 (09:17→20:12)
[2019-01-12] MEDS: DOCUSATE SODIUM 100 MG CAPSULE PO SCH ×2 (09:17→20:12)
[2019-01-12] MEDS: FLUDROCORTISONE 0.1 MG TABLET PO SCH (09:17)
[2019-01-12] MEDS: SENNA 8.6 MG TABLET PO SCH ×2 (09:17→20:12)
[2019-01-12] MEDS: POTASSIUM CHLORIDE 20 MEQ TABLET PO SCH (09:18)
[2019-01-12] MEDS: SERTRALINE 25 MG TABLET PO SCH (09:18)
[2019-01-12] MEDS: ASPIRIN EC 81 MG TABLET PO SCH (09:18)
[2019-01-12] MEDS: PANTOPRAZOLE 40 MG TABLET PO SCH (09:19)
[2019-01-12] MEDS: BRIMONIDINE/TIMOLOL OPH SOLN 5 ML BOTTLE BOTH EYES SCH ×2 (09:20→20:37)
[2019-01-12] MEDS: DIGOXIN 0.125 MG TABLET PO SCH (12:50)
[2019-01-12] MEDS: PHENYLEPHRINE DRIP 40 MG/250 ML PREMIX IV PRN (12:51)
[2019-01-12] MEDS: ENOXAPARIN 40 MG/0.4 ML SYRINGE SUBCUT SCH (20:37)
[2019-01-12] MEDS: ATORVASTATIN 20 MG TABLET PO SCH (20:37)
[2019-01-13 04:45] LABS: Calcium 8.7 MG/DL (8.5-10.1); Osmolality,Calculated 290.7 MOS/KG (273-304)
[2019-01-13] MEDS: PHENYLEPHRINE DRIP 40 MG/250 ML PREMIX IV PRN (04:50)
[2019-01-13 06:02] LABS: Basophils # 0.1 10*3/uL (0.0-0.2); Basophils % 0.7 % (0.0-0.8); Eosinophils # 0.2 10*3/uL (0.0-0.87); Eosinophils % 1.8 % (0.00-10.9); Hematocrit 38.3 VOL% (35.7-47.0); Immature Granulocytes % 0.7 %; Immature Granulocytes Absolute 0.07 #; Lymphocytes # 2.2 10*3/uL (1.4-4.0); Lymphocytes % 20.1 % (21.3-54.2); Mean Corpuscular HGB Conc 28.2 GM/DL (32-36); Mean Corpuscular Volume 84.2 FL (87-102); Mean Platelet Volume 11.3 FL (9.6-12.0); Monocytes % 8.3 % (1.7-12.7); Neutrophils % 68.4 % (38.7-73.9); Platelet Count 412 T/CUMM (130-400); Red Blood Count 4.55 MC/CUMM (3.8-5.5); Red Cell Distribution Width 22.3 % (9.3-17.3); White Blood Count 10.7 T/CUMM (4-12)
[2019-01-13 06:03] LABS: Hemoglobin 10.8 GM/DL (12.0-16.0)
[2019-01-13] MEDS: SODIUM CHLORIDE 0.9% 1,000 ML IV SCH ×2 (07:35→21:32)
[2019-01-13] MEDS: SENNA 8.6 MG TABLET PO SCH ×2 (09:38→20:41)
[2019-01-13] MEDS: DOCUSATE SODIUM 100 MG CAPSULE PO SCH ×2 (09:38→20:40)
[2019-01-13 09:40] LABS: Troponin I 0.086 NG/ML (0.00-0.045)
[2019-01-13] MEDS: POTASSIUM CHLORIDE 20 MEQ TABLET PO SCH (10:08)
[2019-01-13] MEDS: ASPIRIN EC 81 MG TABLET PO SCH (10:08)
[2019-01-13] MEDS: SERTRALINE 25 MG TABLET PO SCH (10:08)
[2019-01-13] MEDS: FLUDROCORTISONE 0.1 MG TABLET PO SCH (10:08)
[2019-01-13] MEDS: NYSTATIN 500,000 UNIT/5 ML UDCUP SWISH/SWAL SCH ×4 (10:09→20:40)
[2019-01-13] MEDS: PANTOPRAZOLE 40 MG TABLET PO SCH (10:09)
[2019-01-13] MEDS: BRIMONIDINE/TIMOLOL OPH SOLN 5 ML BOTTLE BOTH EYES SCH ×2 (10:09→20:39)
[2019-01-13] MEDS: DIGOXIN 0.125 MG TABLET PO SCH (14:38)
[2019-01-13 16:53] LABS: Troponin I 0.093 NG/ML (0.00-0.045)
[2019-01-13] MEDS: ATORVASTATIN 20 MG TABLET PO SCH (20:39)
[2019-01-13] MEDS: ENOXAPARIN 40 MG/0.4 ML SYRINGE SUBCUT SCH (20:39)
[2019-01-14 01:07] LABS: Troponin I 0.089 NG/ML (0.00-0.045)
[2019-01-14 03:48] LABS: Basophils # 0.1 10*3/uL (0.0-0.2); Basophils % 0.7 % (0.0-0.8); Eosinophils # 0.3 10*3/uL (0.0-0.87); Eosinophils % 3.2 % (0.00-10.9); Hemoglobin 9.5 GM/DL (12.0-16.0); Immature Granulocytes % 0.2 %; Immature Granulocytes Absolute 0.02 #; Lymphocytes # 1.8 10*3/uL (1.4-4.0); Lymphocytes % 17.3 % (21.3-54.2); Mean Corpuscular HGB Conc 28.8 GM/DL (32-36); Mean Corpuscular Volume 81.7 FL (87-102); Mean Platelet Volume 10.5 FL (9.6-12.0); Monocytes % 8.8 % (1.7-12.7); Neutrophils % 69.8 % (38.7-73.9); Platelet Count 421 T/CUMM (130-400); Red Blood Count 4.04 MC/CUMM (3.8-5.5); Red Cell Distribution Width 22.1 % (9.3-17.3); White Blood Count 10.1 T/CUMM (4-12)
[2019-01-14 04:15] LABS: Hypochromasia 1+; Microcytosis 1+; Platelet Estimate Normal
[2019-01-14 04:22] LABS: Calcium 8.3 MG/DL (8.5-10.1); Osmolality,Calculated 294.4 MOS/KG (273-304)
[2019-01-14] MEDS: ONDANSETRON 4 MG/2 ML VIAL IV PRN (04:39)
[2019-01-14] MEDS ORDERED: hydrALAZINE 20 MG/1 ML VIAL IV PRN (08:58)
[2019-01-14] MEDS ORDERED: CARVEDILOL 12.5 MG TABLET PO SCH (09:30)
[2019-01-14] MEDS: PANTOPRAZOLE 40 MG TABLET PO SCH (10:03)
[2019-01-14] MEDS: POTASSIUM CHLORIDE 20 MEQ TABLET PO SCH (10:04)
[2019-01-14] MEDS: SERTRALINE 25 MG TABLET PO SCH (10:04)
[2019-01-14] MEDS: ASPIRIN EC 81 MG TABLET PO SCH (10:04)
[2019-01-14] MEDS: DOCUSATE SODIUM 100 MG CAPSULE PO SCH ×2 (10:06→21:06)
[2019-01-14] MEDS: NYSTATIN 500,000 UNIT/5 ML UDCUP SWISH/SWAL SCH ×4 (10:06→21:06)
[2019-01-14] MEDS: BRIMONIDINE/TIMOLOL OPH SOLN 5 ML BOTTLE BOTH EYES SCH ×2 (10:06→21:06)
[2019-01-14] MEDS: SENNA 8.6 MG TABLET PO SCH ×2 (10:06→21:06)
[2019-01-14] MEDS: FLUDROCORTISONE 0.1 MG TABLET PO SCH (12:36)
[2019-01-14] MEDS: DIGOXIN 0.125 MG TABLET PO SCH (13:49)
[2019-01-14] MEDS: ATORVASTATIN 20 MG TABLET PO SCH (21:05)
[2019-01-14] MEDS: ENOXAPARIN 40 MG/0.4 ML SYRINGE SUBCUT SCH (21:05)
[2019-01-14] MEDS: FLUTICASONE/SALMETEROL 250-50 DISKUS 14 DOSE INH SCH (21:11)
[2019-01-15 05:41] LABS: Basophils # 0.1 10*3/uL (0.0-0.2); Basophils % 0.6 % (0.0-0.8); Eosinophils # 0.5 10*3/uL (0.0-0.87); Eosinophils % 5.2 % (0.00-10.9); Hematocrit 32.7 VOL% (35.7-47.0); Immature Granulocytes % 0.3 %; Immature Granulocytes Absolute 0.03 #; Lymphocytes # 1.8 10*3/uL (1.4-4.0); Mean Corpuscular HGB Conc 28.4 GM/DL (32-36); Mean Corpuscular Volume 82.6 FL (87-102); Mean Platelet Volume 11.1 FL (9.6-12.0); Monocytes % 7.4 % (1.7-12.7); Neutrophils % 68.5 % (38.7-73.9); Platelet Count 379 T/CUMM (130-400); Red Blood Count 3.96 MC/CUMM (3.8-5.5); White Blood Count 9.7 T/CUMM (4-12)
[2019-01-15 06:09] LABS: Calcium 8.9 MG/DL (8.5-10.1); Osmolality,Calculated 289.7 MOS/KG (273-304); Osmolality,Calculated 291.6 MOS/KG (273-304)
[2019-01-15 06:12] LABS: Hemoglobin 9.4 GM/DL (12.0-16.0)
[2019-01-15 06:27] LABS: Hypochromasia 1+; Microcytosis Slight; Ovalocytes Slight; Platelet Estimate Adequate
[2019-01-15] MEDS: POTASSIUM CHLORIDE 20 MEQ TABLET PO SCH (10:47)
[2019-01-15] MEDS: ASPIRIN EC 81 MG TABLET PO SCH (10:47)
[2019-01-15] MEDS: PANTOPRAZOLE 40 MG TABLET PO SCH (10:47)
[2019-01-15] MEDS: SERTRALINE 25 MG TABLET PO SCH (10:47)
[2019-01-15] MEDS: MULTIVITAMIN (CENTRUM) TABLET PO SCH (10:47)
[2019-01-15] MEDS: NYSTATIN 500,000 UNIT/5 ML UDCUP SWISH/SWAL SCH ×4 (10:48→20:01)
[2019-01-15] MEDS: BRIMONIDINE/TIMOLOL OPH SOLN 5 ML BOTTLE BOTH EYES SCH ×2 (10:48→20:51)
[2019-01-15] MEDS: DOCUSATE SODIUM 100 MG CAPSULE PO SCH ×2 (10:48→20:51)
[2019-01-15] MEDS: FLUTICASONE/SALMETEROL 250-50 DISKUS 14 DOSE INH SCH ×2 (10:49→20:50)
[2019-01-15] MEDS: SENNA 8.6 MG TABLET PO SCH ×2 (10:49→20:52)
[2019-01-15] MEDS: DESITIN 4OZ/NYSTATIN 15 GRAM MIXTURE PASTE TOP SCH ×2 (15:40→20:52)
[2019-01-15] MEDS: ENOXAPARIN 40 MG/0.4 ML SYRINGE SUBCUT SCH (20:50)
[2019-01-15] MEDS: ATORVASTATIN 20 MG TABLET PO SCH (20:51)
[2019-01-16 06:05] LABS: Basophils # 0.1 10*3/uL (0.0-0.2); Basophils % 0.5 % (0.0-0.8); Eosinophils # 0.3 10*3/uL (0.0-0.87); Eosinophils % 2.7 % (0.00-10.9); Hematocrit 30.2 VOL% (35.7-47.0); Hemoglobin 8.8 GM/DL (12.0-16.0); Immature Granulocytes % 0.7 %; Immature Granulocytes Absolute 0.06 #; Lymphocytes # 1.5 10*3/uL (1.4-4.0); Lymphocytes % 16.8 % (21.3-54.2); Mean Corpuscular HGB Conc 29.1 GM/DL (32-36); Mean Corpuscular Volume 82.3 FL (87-102); Mean Platelet Volume 11.1 FL (9.6-12.0); Monocytes % 8.5 % (1.7-12.7); Neutrophils % 70.8 % (38.7-73.9); Platelet Count 363 T/CUMM (130-400); Red Blood Count 3.67 MC/CUMM (3.8-5.5); Red Cell Distribution Width 22.4 % (9.3-17.3); White Blood Count 9.2 T/CUMM (4-12)
[2019-01-16 06:16] LABS: Calcium 8.7 MG/DL (8.5-10.1)
[2019-01-16 06:41] LABS: Anisocytosis 2+
[2019-01-16 06:42] LABS: Hypochromasia 1+; Microcytosis 1+; Ovalocytes 1+; Platelet Estimate Adequate; Poikilocytosis 1+; Target Cells 1+
[2019-01-16] MEDS: SERTRALINE 25 MG TABLET PO SCH (09:41)
[2019-01-16] MEDS: PANTOPRAZOLE 40 MG TABLET PO SCH (09:41)
[2019-01-16] MEDS: ASPIRIN EC 81 MG TABLET PO SCH (09:41)
[2019-01-16] MEDS: SENNA 8.6 MG TABLET PO SCH ×2 (09:42→21:01)
[2019-01-16] MEDS: BRIMONIDINE/TIMOLOL OPH SOLN 5 ML BOTTLE BOTH EYES SCH ×2 (09:42→21:02)
[2019-01-16] MEDS: MULTIVITAMIN (CENTRUM) TABLET PO SCH (09:46)
[2019-01-16] MEDS: DOCUSATE SODIUM 100 MG CAPSULE PO SCH ×2 (09:46→21:00)
[2019-01-16] MEDS: FLUTICASONE/SALMETEROL 250-50 DISKUS 14 DOSE INH SCH ×2 (09:46→21:02)
[2019-01-16] MEDS: POTASSIUM CHLORIDE 20 MEQ TABLET PO SCH (09:46)
[2019-01-16] MEDS: NYSTATIN 500,000 UNIT/5 ML UDCUP SWISH/SWAL SCH ×4 (09:46→20:24)
[2019-01-16] MEDS: DESITIN 4OZ/NYSTATIN 15 GRAM MIXTURE PASTE TOP SCH ×2 (09:46→21:03)
[2019-01-16] MEDS: ATORVASTATIN 20 MG TABLET PO SCH (21:02)
[2019-01-16] MEDS: ENOXAPARIN 40 MG/0.4 ML SYRINGE SUBCUT SCH (21:02)
[2019-01-17 05:41] LABS: Calcium 8.9 MG/DL (8.5-10.1); Osmolality,Calculated 283.1 MOS/KG (273-304); Osmolality,Calculated 284.1 MOS/KG (273-304)
[2019-01-17 05:54] LABS: Basophils # 0.1 10*3/uL (0.0-0.2); Basophils % 0.7 % (0.0-0.8); Eosinophils # 0.3 10*3/uL (0.0-0.87); Eosinophils % 3.1 % (0.00-10.9); Hematocrit 33.3 VOL% (35.7-47.0); Hemoglobin 9.6 GM/DL (12.0-16.0); Immature Granulocytes % 0.5 %; Immature Granulocytes Absolute 0.05 #; Lymphocytes # 1.8 10*3/uL (1.4-4.0); Lymphocytes % 16.5 % (21.3-54.2); Mean Corpuscular HGB Conc 28.8 GM/DL (32-36); Mean Corpuscular Volume 82.2 FL (87-102); Mean Platelet Volume 11.1 FL (9.6-12.0); Monocytes % 8.6 % (1.7-12.7); Neutrophils % 70.6 % (38.7-73.9); Platelet Count 397 T/CUMM (130-400); Red Blood Count 4.05 MC/CUMM (3.8-5.5); Red Cell Distribution Width 22.6 % (9.3-17.3); White Blood Count 10.7 T/CUMM (4-12)
[2019-01-17 06:13] LABS: Anisocytosis 1+; Hypochromasia 1+
[2019-01-17 06:14] LABS: Macrocytosis Slight; Microcytosis Slight; Ovalocytes Slight; Polychromasia Slight; Target Cells Few
[2019-01-17] MEDS: MULTIVITAMIN (CENTRUM) TABLET PO SCH (09:06)
[2019-01-17] MEDS: ASPIRIN EC 81 MG TABLET PO SCH (09:06)
[2019-01-17] MEDS: FLUTICASONE/SALMETEROL 250-50 DISKUS 14 DOSE INH SCH ×2 (09:06→22:18)
[2019-01-17] MEDS: PANTOPRAZOLE 40 MG TABLET PO SCH (09:07)
[2019-01-17] MEDS: BRIMONIDINE/TIMOLOL OPH SOLN 5 ML BOTTLE BOTH EYES SCH ×2 (09:07→22:17)
[2019-01-17] MEDS: NYSTATIN 500,000 UNIT/5 ML UDCUP SWISH/SWAL SCH ×4 (09:07→22:17)
[2019-01-17] MEDS: POTASSIUM CHLORIDE 20 MEQ TABLET PO SCH (09:07)
[2019-01-17] MEDS: DOCUSATE SODIUM 100 MG CAPSULE PO SCH ×2 (09:07→22:17)
[2019-01-17] MEDS: SENNA 8.6 MG TABLET PO SCH ×2 (09:08→22:18)
[2019-01-17] MEDS: SERTRALINE 25 MG TABLET PO SCH (09:08)
[2019-01-17 10:12] LABS: Platelet Estimate Normal
[2019-01-17] MEDS: DESITIN 4OZ/NYSTATIN 15 GRAM MIXTURE PASTE TOP SCH ×2 (11:08→22:18)
[2019-01-17] MEDS: ENOXAPARIN 40 MG/0.4 ML SYRINGE SUBCUT SCH (22:16)
[2019-01-17] MEDS: ATORVASTATIN 20 MG TABLET PO SCH (22:17)
[2019-01-18 05:40] LABS: Basophils # 0.1 10*3/uL (0.0-0.2); Basophils % 0.8 % (0.0-0.8); Eosinophils # 0.4 10*3/uL (0.0-0.87); Eosinophils % 4.2 % (0.00-10.9); Immature Granulocytes % 0.3 %; Immature Granulocytes Absolute 0.03 #; Lymphocytes # 1.7 10*3/uL (1.4-4.0); Lymphocytes % 18.3 % (21.3-54.2); Mean Corpuscular Volume 80.4 FL (87-102); Monocytes % 9.8 % (1.7-12.7); Neutrophils % 66.6 % (38.7-73.9); Platelet Count 396 T/CUMM (130-400); Red Blood Count 3.73 MC/CUMM (3.8-5.5); Red Cell Distribution Width 22.6 % (9.3-17.3); White Blood Count 9.1 T/CUMM (4-12)
[2019-01-18 05:50] LABS: Calcium 8.7 MG/DL (8.5-10.1); Osmolality,Calculated 276.5 MOS/KG (273-304)
[2019-01-18 06:43] LABS: Anisocytosis 1+; Microcytosis 1+
[2019-01-18 06:45] LABS: Stomatocytes Few
[2019-01-18 06:46] LABS: Hypochromasia Slight; Platelet Estimate Normal
[2019-01-18] MEDS: NYSTATIN 500,000 UNIT/5 ML UDCUP SWISH/SWAL SCH ×5 (09:07→21:09)
[2019-01-18] MEDS: MULTIVITAMIN (CENTRUM) TABLET PO SCH (09:07)
[2019-01-18] MEDS: SERTRALINE 25 MG TABLET PO SCH (09:07)
[2019-01-18] MEDS: ASPIRIN EC 81 MG TABLET PO SCH (09:07)
[2019-01-18] MEDS: PANTOPRAZOLE 40 MG TABLET PO SCH (09:07)
[2019-01-18] MEDS: POTASSIUM CHLORIDE 20 MEQ TABLET PO SCH (09:07)
[2019-01-18] MEDS: FLUTICASONE/SALMETEROL 250-50 DISKUS 14 DOSE INH SCH ×2 (09:08→21:08)
[2019-01-18] MEDS: DOCUSATE SODIUM 100 MG CAPSULE PO SCH ×2 (09:09→21:12)
[2019-01-18] MEDS: DESITIN 4OZ/NYSTATIN 15 GRAM MIXTURE PASTE TOP SCH ×2 (09:09→21:11)
[2019-01-18] MEDS: SENNA 8.6 MG TABLET PO SCH ×2 (09:09→21:12)
[2019-01-18] MEDS: BRIMONIDINE/TIMOLOL OPH SOLN 5 ML BOTTLE BOTH EYES SCH ×2 (09:16→21:08)
[2019-01-18] MEDS ORDERED: SODIUM CHLORIDE 0.9% 500 ML IV ONE (13:13)
[2019-01-18] MEDS: ATORVASTATIN 20 MG TABLET PO SCH (21:08)
[2019-01-18] MEDS: ENOXAPARIN 40 MG/0.4 ML SYRINGE SUBCUT SCH (21:11)
[2019-01-19 04:33] LABS: Basophils # 0.1 10*3/uL (0.0-0.2); Basophils % 0.7 % (0.0-0.8); Eosinophils # 0.5 10*3/uL (0.0-0.87); Eosinophils % 5.2 % (0.00-10.9); Hematocrit 29.6 VOL% (35.7-47.0); Hemoglobin 8.9 GM/DL (12.0-16.0); Immature Granulocytes % 0.5 %; Immature Granulocytes Absolute 0.05 #; Lymphocytes % 19.7 % (21.3-54.2); Mean Corpuscular HGB Conc 30.1 GM/DL (32-36); Mean Corpuscular Volume 80.7 FL (87-102); Mean Platelet Volume 11.5 FL (9.6-12.0); Monocytes % 11.3 % (1.7-12.7); Neutrophils % 62.6 % (38.7-73.9); Platelet Count 401 T/CUMM (130-400); Red Blood Count 3.67 MC/CUMM (3.8-5.5); Red Cell Distribution Width 22.8 % (9.3-17.3); White Blood Count 10.2 T/CUMM (4-12)
[2019-01-19 04:57] LABS: Calcium 8.9 MG/DL (8.5-10.1); Osmolality,Calculated 279.3 MOS/KG (273-304)
[2019-01-19 05:52] LABS: Anisocytosis 2+; Ovalocytes Slight
[2019-01-19 05:53] LABS: Platelet Estimate Adequate; Target Cells Few
[2019-01-19] MEDS: MULTIVITAMIN (CENTRUM) TABLET PO SCH (08:30)
[2019-01-19] MEDS: POTASSIUM CHLORIDE 20 MEQ TABLET PO SCH (08:30)
[2019-01-19] MEDS: DOCUSATE SODIUM 100 MG CAPSULE PO SCH ×3 (08:30→21:08)
[2019-01-19] MEDS: PANTOPRAZOLE 40 MG TABLET PO SCH (08:31)
[2019-01-19] MEDS: DESITIN 4OZ/NYSTATIN 15 GRAM MIXTURE PASTE TOP SCH ×2 (08:31→21:06)
[2019-01-19] MEDS: SERTRALINE 25 MG TABLET PO SCH (08:31)
[2019-01-19] MEDS: ASPIRIN EC 81 MG TABLET PO SCH (08:31)
[2019-01-19] MEDS: FLUTICASONE/SALMETEROL 250-50 DISKUS 14 DOSE INH SCH ×2 (08:31→21:10)
[2019-01-19] MEDS: BRIMONIDINE/TIMOLOL OPH SOLN 5 ML BOTTLE BOTH EYES SCH ×2 (08:32→21:10)
[2019-01-19] MEDS: NYSTATIN 500,000 UNIT/5 ML UDCUP SWISH/SWAL SCH ×4 (08:32→21:08)
[2019-01-19] MEDS: SENNA 8.6 MG TABLET PO SCH ×2 (08:34→21:08)
[2019-01-19] MEDS: ENOXAPARIN 40 MG/0.4 ML SYRINGE SUBCUT SCH (21:06)
[2019-01-19] MEDS: ATORVASTATIN 20 MG TABLET PO SCH (21:08)
[2019-01-20 02:36] LABS: Basophils # 0.1 10*3/uL (0.0-0.2); Basophils % 0.7 % (0.0-0.8); Eosinophils # 0.5 10*3/uL (0.0-0.87); Eosinophils % 4.7 % (0.00-10.9); Hematocrit 29.4 VOL% (35.7-47.0); Hemoglobin 8.6 GM/DL (12.0-16.0); Immature Granulocytes % 0.5 %; Immature Granulocytes Absolute 0.05 #; Lymphocytes # 1.9 10*3/uL (1.4-4.0); Lymphocytes % 18.5 % (21.3-54.2); Mean Corpuscular HGB Conc 29.3 GM/DL (32-36); Mean Corpuscular Volume 81.7 FL (87-102); Mean Platelet Volume 11.7 FL (9.6-12.0); Monocytes % 10.5 % (1.7-12.7); Neutrophils % 65.1 % (38.7-73.9); Platelet Count 400 T/CUMM (130-400); White Blood Count 10.1 T/CUMM (4-12)
[2019-01-20 03:07] LABS: Calcium 8.6 MG/DL (8.5-10.1); Osmolality,Calculated 278.3 MOS/KG (273-304)
[2019-01-20] MEDS: ALBUTEROL 2.5 MG/3 ML NEB RESP TX PRN (05:23)
[2019-01-20] MEDS: ASPIRIN EC 81 MG TABLET PO SCH (09:39)
[2019-01-20] MEDS: PANTOPRAZOLE 40 MG TABLET PO SCH (09:39)
[2019-01-20] MEDS: SERTRALINE 25 MG TABLET PO SCH (09:39)
[2019-01-20] MEDS: BRIMONIDINE/TIMOLOL OPH SOLN 5 ML BOTTLE BOTH EYES SCH ×2 (09:40→20:51)
[2019-01-20] MEDS: POTASSIUM CHLORIDE 20 MEQ TABLET PO SCH (09:40)
[2019-01-20] MEDS: FLUTICASONE/SALMETEROL 250-50 DISKUS 14 DOSE INH SCH ×2 (09:40→20:51)
[2019-01-20] MEDS: DOCUSATE SODIUM 100 MG CAPSULE PO SCH ×2 (09:40→20:26)
[2019-01-20] MEDS: MULTIVITAMIN (CENTRUM) TABLET PO SCH (09:40)
[2019-01-20] MEDS: DESITIN 4OZ/NYSTATIN 15 GRAM MIXTURE PASTE TOP SCH ×2 (09:41→20:51)
[2019-01-20] MEDS: SENNA 8.6 MG TABLET PO SCH ×2 (09:41→20:26)
[2019-01-20] MEDS: NYSTATIN 500,000 UNIT/5 ML UDCUP SWISH/SWAL SCH ×4 (09:41→20:26)
[2019-01-20] MEDS: ATORVASTATIN 20 MG TABLET PO SCH (20:51)
[2019-01-20] MEDS: ENOXAPARIN 40 MG/0.4 ML SYRINGE SUBCUT SCH (20:51)
[2019-01-21 08:22] VITALS: BP 104/79
[2019-01-21] MEDS: FLUTICASONE/SALMETEROL 250-50 DISKUS 14 DOSE INH SCH (09:21)
[2019-01-21] MEDS: ASPIRIN EC 81 MG TABLET PO SCH (09:22)
[2019-01-21] MEDS: POTASSIUM CHLORIDE 20 MEQ TABLET PO SCH (09:23)
[2019-01-21] MEDS: MULTIVITAMIN (CENTRUM) TABLET PO SCH (09:23)
[2019-01-21] MEDS: SERTRALINE 25 MG TABLET PO SCH (09:24)
[2019-01-21] MEDS: PANTOPRAZOLE 40 MG TABLET PO SCH (09:24)
[2019-01-21] MEDS: BRIMONIDINE/TIMOLOL OPH SOLN 5 ML BOTTLE BOTH EYES SCH (11:23)
[2019-01-21] MEDS: DOCUSATE SODIUM 100 MG CAPSULE PO SCH (11:23)
[2019-01-21] MEDS: DESITIN 4OZ/NYSTATIN 15 GRAM MIXTURE PASTE TOP SCH (11:24)
[2019-01-21] MEDS: SENNA 8.6 MG TABLET PO SCH (11:24)
[2019-01-21] MEDS: NYSTATIN 500,000 UNIT/5 ML UDCUP SWISH/SWAL SCH (11:24)
== END 2019-01-21 12:24 | disposition swing bed (61) | DRG 871 ==
LOC: N.ED 16:25 → N.EDINP 18:59 → SUATTDRO 18:59 → N.CC 19:57 → N.TELEN 01-15 16:02
PROVIDERS: ADMIT Hospitalist; ATTEND Hospitalist